=== PATIENT | female | born 1995 | race Caucasian/White ===

== ENCOUNTER 2022-09-23 22:01 | Emergency (ER) | payer BC, SELFPAY ==
[2022-09-23 22:05] VITALS: BP 107/71; PULSE 100; RESP 26; TEMP 36.9; O2SAT 94; BMI 21.4
--- NOTE | 2022-09-23 22:27 | XRR_ITS ---
PROCEDURE INFORMATION: Exam: XR Ribs Exam date and time: 09/23/2022 10:44 PM Age: 26 years old Clinical indication: Injury or trauma; Other: Seizure; Chest wall; Blunt trauma; Additional info: Seizure, chest wall pain TECHNIQUE: Imaging protocol: Radiologic exam of the of the ribs. Views: 3 views. Bilateral ribs. COMPARISON: No relevant prior studies available. FINDINGS: Bones/joints: No acute fracture or malalignment. Soft tissues: Unremarkable. XR/XR ribs BI mn 4V w [id number] IMPRESSION: No acute findings.
--- NOTE | 2022-09-23 22:31 | ED_ITS ---
HPI - Seizure General: Chief Complaint: Seizure Stated Complaint: seizure like activity Time Seen by Provider: 09/23/22 22:07 History of Present Illness: HPI Narrative: Summer is a 26-year-old female with known history of seizure-like activity that presents to the emergency department after she developed intermittent seizure - like activity for 20 minutes. Patient's mother is present with her in the emergency department. She relates tonic-clonic seizure-like activity that would start and stop and the entire episode lasted 20 minutes. 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 She was started on Keppra but then that was changed topiramate 50 mg a day. Currently she is staying here for [employer]; home is in [place]. She has follow-up with a neurologist in [place] pending. Patient is now alert, oriented, and following commands She is complaining of left-sided lateral chest wall pain/left upper quadrant abdominal pain She is also complaining of right index finger pain. Associated symptoms: Deny chest pain, chills, confusion, fever(s) or malaise Review of Systems General: Reports: 10 or more systems reviewed and unremarkable except in HPI and below Const: Denies: fever(s), chills, change in appetite, change in weight, fatigue or malaise Eyes: Denies: change in vision, eye discomfort, eye discharge or eye redness ENMT: Denies: throat pain, enlarged tonsils, odynophagia, hoarseness, ear or mastoid pain, ear discharge, change in hearing, tinnitus, nasal discharge, nasal congestion, post nasal drip or sinus pain Card: Denies: chest pain, palpitations, irregular heart rhythm, edema, dyspnea on exertion, orthopnea or leg pain with exertion Resp: Denies: dyspnea, productive cough, non-productive cough, wheezing, stridor or chest congestion GI: Denies: abdominal pain, nausea, vomiting, dysphagia, diarrhea, constipation, bloating, GI cramping or hematochezia : Denies: flank pain, difficulty voiding, dysuria, urinary frequency, urinary urgency, urinary hesitancy, oliguria or hematuria Musc: Reports: extremity pain and joint pain; Denies: neck pain, back pain, joint swelling, joint redness, joint warmth or muscle weakness Skin/Breast: Denies: rash, pruritus, erythema, photosensitivity or new lesions Neuro: Reports: headache(s) and seizure-like activity; Denies: numbness in extremities, weakness in extremities, sensory changes, lack of coordination, difficulty walking, frequent falls, dizziness, confusion, Slurred speech present, difficulty communicating thoughts or involuntary movements Endo: Denies: polyuria, polydipsia or tired all the time Hugo/Lymph: Denies: easy bruising or easy bleeding Physical Exam Const: COMMON NORMALS: no acute distress, patient oriented x3 and alert GENERAL APPEARANCE: cooperative ORIENTATION/CONSCIOUSNESS: Yes awake, Yes oriented to person, Yes oriented to place and Yes oriented to time HENMT: COMMON NORMALS: normocephalic and atraumatic HEAD & SCALP: normocephalic and atraumatic FACE & SINUS: normal facial exam MOUTH: Normal oral and palatal mucosa present THROAT: posterior oropharynx normal Eye: COMMON NORMALS: Equal, round and reactive pupils present, EOMs intact bilaterally, conjunctivae normal and no scleral icterus GENERAL EYE: shellie earance normal, both eyes and all related structures ALIGNMENT: Yes alignment normal PERIORBITAL: periorbital findings normal CONJUNCTIVA: Yes conjunctivae normal PUPIL: Yes Equal, round and reactive pupils present Neck/C-Spine: COMMON NORMALS: full ROM GENERAL: Yes normal visual inspection Lymph: LYMPHATIC: no lymphadenopathy noted Chest: COMMONS NORMALS: normal inspection of the chest Breast/axilla inspection: Yes no chest deformity, asymmetry, normal contours, no nodules, masses, tenderness Resp: COMMON NORMALS: normal respiratory effort, No retractions, No use of accessory muscles and clear to auscultation bilaterally EFFORT & INSPECTION: Yes able to speak in complete sentences and Yes symmetric chest movement AUSCULTATION: clear to auscultation bilaterally Cardio: COMMON NORMALS: regular rate, regular rhythm and Peripheral pulses 2+ throughout RATE: regular rate RHYTHM: regular rhythm PERIPHERAL PULSES: Peripheral pulses 2+ throughout GI: COMMON NORMALS: Normal to inspection, nondistended, normoactive bowel sounds present, Soft to palpation, non-tender and No hepatosplenomegaly present INSPECTION: Yes normal to inspection AUSCULTATION: Yes normoactive bowel sounds PALPATION: Yes Soft to palpation and Yes No hepatosplenomegaly present RECTAL EXAM: deferred Extremity: COMMON NORMALS: normal to inspection GENERAL: Yes normal exam except as noted Neuro: COMMON NORMALS: patient oriented x3 SENSORIUM/ORIENTATION: Yes alert, Yes oriented to person, Yes oriented to place and Yes oriented to time CRANIAL NERVES: Yes CN normal except as noted Psych: COMMON NORMALS: mental status grossly normal, Normal thought process present, cooperative, activity/motor behavior normal, denies homicidal ideation and denies suicidal ideation THOUGHT PROCESS: Normal thought process present Skin: COMMON NORMALS: no rashes or lesions noted, no wounds and turgor normal GENERAL SKIN EXAM: no rashes or lesions noted and turgor normal Course Vital Signs: Vital signs: Vital Signs Temperature 98.4 F 09/23/22 22:05 Pulse Rate 94 09/24/22 01:10 Respiratory Rate 24 H 09/24/22 01:10 Blood Pressure 98/54 09/24/22 01:10 Pulse Oximetry 96 09/24/22 01:10 Oxygen Delivery Me thod Room Air 09/24/22 01:10 MDM - Seizure MDM Narrative Medical decision making narrative: Differential diagnoses include seizure?epilepsy, drug-induced, alcohol induced, alcohol withdrawal Syncope and pseudoseizures additional diagnostics Patient was evaluated in the emergency department following seizure-like activity that lasted about 20 minutes. Seizure precautions were taken. Cardiac monitoring initiated Patient underwent CT head, XR ribs and chest and laboratory evaluation. These diagnostics did not reveal any acute findings. She also underwent XR fingers?right index which revealed a possible nondisplaced fracture of the second middle phalangeal base. It was given a finger splint. Laboratory studies revealed no significant leukocytosis anemias, electrolyte disturbances or renal and liver dysfunction. Negative test Negative urinalysis Negative urine drug screen I did test her topiramate level which is a send out. We will await findings and update family once is resulted . Patient reports she is feeling much better, has had no seizure activity. We will allow her to discharge home and follow-up with her neurologist as planned. They are to return to the emergency department for new concerning or worsening symptoms. Patient is to continue taking her topiramate. Lab Data 09/23/22 22:14 09/23/22 22:14 Labs: Radiology Impressions Ribs w/Chest X-Ray 09/23/22 22:27 IMPRESSION: No acute findings. Finger X-Ray 09/23/22 22:34 IMPRESSION: Possible nondisplaced fracture at the volar base of the 2nd middle phalangeal base. Head CT 09/23/22 23:47 IMPRESSION: No acute intracranial findings. Laboratory Results WBC 11.9 10^3/uL (4.0-10.0) H 09/23/22 22:14 RBC 3.87 10^6/uL (4.1-5.3) L 09/23/22 22:14 Hgb 11.4 g/dL (11.5-15.3) L 09/23/22 22:14 Hct 34.8 % (37.0-47.0) L 09/23/22 22:14 MCV 89.9 fl (81-99) 09/23/22 22:14 MCH 29.5 pg (28.0-34.0) 09/23/22 22:14 MCHC 32.8 g/dL (30.0-36.0) 09/23/22 22:14 RDW 13.7 % (12.1-15.1) 09/23/22 22:14 Plt Count 340 10^3/cmm (130-400) 09/23/22 22:14 MPV 9.7 fL (7.4-10.4) 09/23/22 22:14 Neut % (Auto) 65.0 % 09/23/22 22:14 Lymph % (Auto) 27.2 % 09/23/22 22:14 Avery % (Auto) 6.5 % 09/23/22 22:14 Eos % (Auto) 0.7 % 09/23/22 22:14 Baso % (Auto) 0.3 % 09/23/22 22:14 Neut # (Auto) 7.74 10^3/uL (1.8-7.7) H 09/23/22 22:14 Lymph # (Auto) 3.2 10^3/uL (0.8-4.8) 09/23/22 22:14 Avery # (Auto) 0.8 10^3/uL (0.2-0.9) 09/23/22 22:14 Eos # (Auto) 0.1 10^3/uL (0.0-0.8) 09/23/22 22:14 Baso # (Auto) 0.0 10^3/uL (0.0-0.1) 09/23/22 22:14 Nucleated RBC % (auto) 0 % 09/23/22 22:14 Nucleated RBCs # 0.0 /100WBC 09/23/22 22:14 Sodium 141 mmol/L (136-145) 09/23/22 22:14 Potassium 3.8 mmol/L (3.5-5.1) 09/23/22 22:14 Chloride 107 mmol/L (98-107) 09/23/22 22:14 Carbon Dioxide 22 mmol/L (22-29) 09/23/22 22:14 Anion Gap 15.8 (5-19) 09/23/22 22:14 BUN 20 mg/dL (6-20) 09/23/22 22:14 Creatinine 0.8 mg/dL (0.5-0.9) 09/23/22 22:14 GFR Calculation 86.7 mL/min (90-130) L 09/23/22 22:14 Glucose 95 mg/dL (65-115) 09/23/22 22:14 Calculated Osmolality 294 mOsm/kg (285-295) 09/23/22 22:14 Calcium 9.3 mg/dL (8.5-10.5) 09/23/22 22:14 Total Bilirubin 0.2 mg/dL (0.15-1.2) 09/23/22 22:14 AST 11 U/L (0-32) 09/23/22 22:14 ALT < 5 U/L (0-33) 09/23/22 22:14 Alkaline Phosphatase 86 U/L (35-105) 09/23/22 22:14 Total Protein 6.8 g/dL (6.6-8.7) 09/23/22 22:14 Albumin 4.1 g/dL (3.5-5.2) 09/23/22 22:14 Globulin 2.7 g/dL (1.3-4.6) 09/23/22 22:14 HCG, Qual Negative (Negative) 09/24/22 00:11 Urine Color Yellow (Yellow) 09/24/22 00:11 Urine Appearance Clear (CLEAR) 09/24/22 00:11 Urine pH 5 (5-7) 09/24/22 00:11 Ur Specific Mcnabb 1.020 (1.005-1.030) 09/24/22 00:11 Urine Protein Neg (Negative) 09/24/22 00:11 Urine Glucose (UA) Norm (Normal) 09/24/22 00:11 Urine Ketones 1+ (Negative) H 09/24/22 00:11 Urine Blood Neg (Negative) 09/24/22 00:11 Urine Nitrate Negative (Negative) 09/24/22 00:11 Urine Bilirubin Neg (Negative) 09/24/22 00:11 Urine Urobilinogen Norm mg/dL (Negative) 09/24/22 00:11 Ur Leukocyte Esterase Negative (Negative) 09/24/22 00:11 Urine Opiates Screen Negative ng/mL (Negative) 09/24/22 00:11 Ur Barbiturates Screen Negative ng/mL (Negative) 09/24/22 00:11 Ur Phencyclidine Scrn Negative ng/mL (Negative) 09/24/22 00:11 Ur Amphetamines Screen Negative ng/mL (Negative) 09/24/22 00:11 U Benzodiazepines Scrn Negative ng/mL (Negative) 09/24/22 00:11 Urine Cocaine Screen Negative ng/mL (Negative) 09/24/22 00:11 U Marijuana (THC) Screen Negative ng/mL (Negative) 09/24/22 00:11 Discharge Plan Discharge Patient Disposition: Home Clinical Impression: Generalized seizure Condition: Stable Discharge Orders: Discharge ED (Routine); Ordered 09/24/22 Ordered By: Joan aTylor Discharge Diet: Advance as tolerated Discharge Activity: Resume usual activity Patient Instructions: Pain Management Activity Restrictions/Additional Instructions: Do not change your topiramate dose. We will defer to your neurologist or [facility] care provider Patient is not allowed to swim or bathe unattended until cleared by a neurologist or primary care provider. She should not drive a motor vehicle until she is seizure-free for 6 months Please return to the emergency department for new concerning or worsening symptoms Coding Level of Care Code ED [employer] for Alice Harris
--- NOTE | 2022-09-23 22:34 | XRR_ITS ---
PROCEDURE INFORMATION: Exam: XR Right Finger(s) Exam date and time: 09/23/2022 10:50 PM Age: 26 years old Clinical indication: Injury or trauma; Other: Seizure; Blunt trauma (contusions or hematomas); Right; Index finger; Additional info: Right finger injury-index finger TECHNIQUE: Imaging protocol: Radiologic exam of the right fingers. Views: Minimum 2 views. COMPARISON: No relevant prior studies available. FINDINGS: Bones/joints: Query nondisplaced fracture at the volar aspect of the 2nd middle phalangeal base. Soft tissues: Unremarkable. XR/XR finger RT min 2V [id number] IMPRESSION: Possible nondisplaced fracture at the volar base of the 2nd middle phalangeal base.
[2022-09-23 22:39] LABS: Basophils % 0.3 %; Eosinophils # 0.1 10^3/uL (0.0-0.8); Eosinophils % 0.7 %; Hematocrit 34.8 % (37.0-47.0); Hemoglobin 11.4 g/dL (11.5-15.3); Lymphocytes # 3.2 10^3/uL (0.8-4.8); Lymphocytes % 27.2 %; Mean Corpuscular HGB Conc 32.8 g/dL (30.0-36.0); Mean Corpuscular Hemoglobin 29.5 pg (28.0-34.0); Mean Corpuscular Volume 89.9 fl (81-99); Mean Platelet Volume 9.7 fL (7.4-10.4); Monocytes # 0.8 10^3/uL (0.2-0.9); Monocytes % 6.5 %; Neutrophils # 7.74 10^3/uL (1.8-7.7); Nucleated Red Blood Cells % 0 %; Platelet Count 340 10^3/cmm (130-400); Red Blood Count 3.87 10^6/uL (4.1-5.3); Red Cell Distribution Width 13.7 % (12.1-15.1); White Blood Count 11.9 10^3/uL (4.0-10.0)
[2022-09-23 22:54] LABS: Alanine Aminotransferase < 5 U/L (0-33); Albumin Level 4.1 g/dL (3.5-5.2); Alkaline Phosphatase 86 U/L (35-105); Anion Gap 15.8 (5-19); Aspartate Amino Transferase 11 U/L (0-32); Blood Urea Nitrogen 20 mg/dL (6-20); Calcium 9.3 mg/dL (8.5-10.5); Carbon Dioxide 22 mmol/L (22-29); Chloride 107 mmol/L (98-107); Globulin 2.7 g/dL (1.3-4.6); Glomerular Filtration Rate 86.7 mL/min (90-130); Glucose 95 mg/dL (65-115); Osmolality Calculated 294 mOsm/kg (285-295); Potassium 3.8 mmol/L (3.5-5.1); Sodium 141 mmol/L (136-145); Total Bilirubin 0.2 mg/dL (0.15-1.2); Total Protein 6.8 g/dL (6.6-8.7)
[2022-09-23] MEDS: sodium chloride 0.9% 500 ML IV (22:54)
--- NOTE | 2022-09-23 23:47 | CTR_ITS ---
PROCEDURE INFORMATION: Exam: CT Head Without Contrast Exam date and time: 09/23/2022 11:55 PM Age: 26 years old Clinical indication: Condition or disease; Convulsions or seizures; Patient HX: Witnessed seizure activity. History of pseudo seizures. TECHNIQUE: Imaging protocol: Computed tomography of the head without contrast. Radiation optimization: All CT scans at this facility use at least one of these dose optimization techniques: automated exposure control; mA and/or kV adjustment per patient size (includes targeted exams where dose is matched to clinical indication); or iterative reconstruction. REPORTING DATA: Count of CT and Cardiac NM exams in prior 12 months: This patient has received 0 known CTs and 0 known cardiac nuclear medicine studies in the 12 months prior to the current study. COMPARISON: No relevant prior studies available. RADIATION DOSE METRICS: Total DLP (mGy-cm): 929.78 FINDINGS: Brain: No acute intracranial hemorrhage. No mass effect or midline shift. Basal cisterns are patent. Normal campbell-white matter differentiation. Cerebral ventricles: No ventriculomegaly. Paranasal sinuses: Visualized sinuses are unremarkable. Mastoid air cells: Visualized mastoid air cells are clear. Bones/joints: No acute calvarial fracture. Soft tissues: Unremarkable. CT/CT head wo con* [id number] IMPRESSION: No acute intracranial findings.
[2022-09-24 00:19] LABS: HCG Qualitative Urine. Negative (Negative)
[2022-09-24 00:24] LABS: Add Urine Microscopic? NO; Charge for UA Resulting for Rev
[2022-09-24 00:26] LABS: Bilirubin Urine Neg (Negative); Blood Urine Neg (Negative); Glucose Urine UA Norm (Normal); Ketones Urine 1+ (Negative); Leukocyte Esterase Urine Negative (Negative); Nitrate Urine Negative (Negative); Protein Urine Neg (Negative); Urine Appearance Clear (CLEAR); Urine Color Yellow (Yellow); Urobilinogen Urine Norm (Negative); pH Urine 5 (5-7)
[2022-09-24 00:35] LABS: Amphetamines Screen Urine Negative (Negative); Barbiturates Screen Urine Negative (Negative); Benzodiazepines Screen Urine Negative (Negative); Cocaine Screen Urine Negative (Negative); Opiate Screen Urine Negative (Negative); PCP Screen Urine Negative (Negative); THC Screen Urine Negative (Negative)
[2022-09-24 01:10] VITALS: BP 98/54; PULSE 94; RESP 24; O2SAT 96
== END 2022-09-24 02:10 | disposition home or self-care (01) ==
PROVIDERS: Emergency Provider Nurse Practitioner
DX: G40.89 Other seizures (principal)
CPT/HCPCS: 70450; 71111; 73140; 80053; 80201; 80306; 81003; 81025; 85025; 96365; 99285; J1953; J7040